=== PATIENT | female | born 1990 | race Caucasian/White ===

== ENCOUNTER 2016-09-16 06:30 | Inpatient (IN) | payer OTHER ==
[~2016-09-16 06:30] MED LIST: CITRIC ACID/SODIUM CITRATE 30 ML UNIT-DOSE CUP PO ONE; ELECTROLYTE-148 SOLN 1,000 ML IV SCH
[2016-09-16] MEDS ORDERED: ELECTROLYTE-148 SOLN 1,000 ML IV SCH (07:00)
[2016-09-16 07:32] VITALS: BMI 25.0
--- NOTE | 2016-09-16 08:03 | HP ---
Past Medical History - Primary Care Physician PCP:: Tony Guillen - Admission Chief Complaint: 39 weeks, 2 previous c/s , voluntary sterlization History of Present Illness: 26 yo f edc by sono 09/23/16 with 2 previous c/s requesting repeat c/s and btl, risks discussed , aware small failures risk and risk of ectopic, cx clp, vx -3 mi, fhr cat 1 History Source: Family Member Limitations to Obtaining History: Language Barrier - Past Medical History ...: 3 ...Para: 2 ...Term: 2 ...: 0 ...Spon : 0 ...Induced : 0 ...Multiple Gestation: 0 ...LMP: 12/18/15 ... Weeks Gestation by Dates: 39.0 ...EDC by Dates: 09/23/16 ...EDC by Sono: 09/23/16 - Past Surgical History Past Surgical History: Yes: Hx Myomectomy: No Hx Transabdominal Cerclage: No - Smoking History Smoking history: Never smoked Have you smoked in the past 12 months: No - Alcohol/Substance Use Hx Alcohol Use: No - Social History Usual Living Arrangement: Yes: With Spouse History of Recent Travel: No Home Medications - Allergies Allergies/Adverse Reactions: Allergies Allergy/AdvReac Type Severity Reaction Status Date / Time Penicillins Allergy Intermediate Rash Verified 09/16/16 07:22 - Home Medications Home Medications: Ambulatory Orders Vitamins (Sjr) - 1 tab PO DAILY 09/16/16 Review of Systems - Review of Systems Constitutional: reports: No Symptoms Eyes: reports: No Symptoms HENT: reports: No Symptoms Neck: reports: No Symptoms Cardiovascular: reports: No Symptoms Respiratory: reports: No Symptoms Gastrointestinal: reports: No Symptoms Genitourinary: reports: No Symptoms Breasts: reports: No Symptoms Reported Musculoskeletal: reports: No Symptoms Integumentary: reports: No Symptoms Neurological: reports: No Symptoms Endocrine: reports: No Symptoms Hematology/Lymphatic: reports: No Symptoms Psychiatric: reports: No Symptoms Physical Exam - Maternity Vital Signs: Vital Signs Temperature 98.3 F 09/16/16 07:07 Pulse Rate 72 09/16/16 07:07 Respiratory Rate 20 09/16/16 07:07 Blood Pressure 105/62 09/16/16 07:07 O2 Sat by Pulse Oximetry (%) Constitutional: Yes: Well Nourished, No Distress, Calm Eyes: Yes: WNL HENT: Yes: WNL, Atraumatic, Normocephalic Neck: Yes: WNL, Supple, Trachea Midline Cardiovascular: Yes: WNL, Regular Rate and Rhythm Breast(s): Yes: WNL - Abdominal Exam/OB Fundal Height: 40 Number of Fetuses: Single Presentation: Vertex Contractions: No Intensity: Unaware Monitor Mode: External Heart Rate Location: [facility] Category: I Accelerations: Uniform Decelerations: None - Vaginal Exam/OB Vaginal Bleediing: No Speculum Exam: No Dilatation (cm): closed Effacement (%): 0 Amniotic Membrane Status: Intact Presentation: Vertex/Position Station: -3 - Physical Exam Edema: Yes Edema: LLE: Trace, RLE: Trace Psychiatric: Yes: WNL Hemorrhage Risk Assessment - Risk Factors Risk Score: 1 Risk Level: Medium Risk Problem List - Problems (1) with 39 completed weeks gestation Code(s): Z3A.39 - 39 WEEKS GESTATION OF (2) Previous section complicating Code(s): O34.219 - MATERNAL CARE FOR UNSP TYPE SCAR FROM PREVIOUS DEL (3) Admission for sterilization Code(s): Z30.2 - ENCOUNTER FOR STERILIZATION Assessment/Plan repeat c/s rba discussed
[2016-09-16] MEDS ORDERED: oxyCODONE HCL 5 MG TABLET PO PRN ×2 (08:43)
[2016-09-16] MEDS ORDERED: METHYLERGONOVINE MALEATE 0.2 MG/1 ML AMP IM PRN (08:43)
[2016-09-16] MEDS ORDERED: WITCH HAZEL 50% (TUCKS) 40 PAD/JAR PAD TP PRN (08:43)
[2016-09-16] MEDS ORDERED: BENZOCAINE 28 GM HEMORRHOIDAL OINTMENT PR PRN (08:43)
[2016-09-16] MEDS ORDERED: diphenhydrAMINE HCL 25 MG CAPSULE (FP) PO PRN (08:43)
[2016-09-16] MEDS ORDERED: BENZOCAINE 20% 57 GM BOTTLE TP PRN (08:43)
[2016-09-16] MEDS ORDERED: IBUPROFEN 800 MG/8 ML IJ IVPB PRN (08:43)
[2016-09-16] MEDS ORDERED: DEXTROSE 5%-LACTATED RINGERS 1,000 ML IV SCH (08:45)
[2016-09-16] MEDS ORDERED: OXYTOCIN 20 UNITS in 0.9% NS 1,000 ML IV SCH (08:45)
[2016-09-16] MEDS ORDERED: CLINDAMYCIN 600MG PREMIX IVPB 50 ML IVPB SCH (10:00)
[2016-09-16] MEDS: PRENATAL VITAMINS W/ FOLIC ACID TABLET (FP) PO SCH (11:51)
--- NOTE | 2016-09-16 14:15 | OP ---
DATE OF OPERATION: 09/16/2016 PREOPERATIVE DIAGNOSES: 39 weeks, 2 previous sections, request of repeat section and tubal ligation. POSTOPERATIVE DIAGNOSES: 39 weeks, 2 previous sections, request of repeat section and tubal ligation. PROCEDURE: Repeat low segment transverse section and bilateral tubal ligation. SURGEON: Tony Guillen MD RELAY ASSEMBLER: SHILO Brito ANESTHESIA: Spinal. ANESTHESIOLOGIST: Dante Mcdowell MD ESTIMATED BLOOD LOSS: 500 mL. FINDINGS: A live baby girl ROT position. Apgars 9/9. DESCRIPTION OF PROCEDURE: The patient was taken to the operating room under adequate spinal anesthesia. Abdomen and perineum was prepped and draped. Old scar was removed, and then abdominal wall was cut layer by layer until peritoneum was exposed and incised. Upon entering the abdominal cavity, lower uterine segment was identified, and uterovesical fold of peritoneum established. Bladder was pushed down. Then with the lower blade of the [place] in the pelvis, a low transverse uterine incision was made. Incision was extended laterally. Amniotic sac was entered. Clear fluid. Head delivered. Nasal sinus was suctioned, and live baby girl was delivered without any difficulty. Placenta was delivered manually. Uterine cavity was cleaned of all remaining tissue. Uterine incision was closed in 2 layers, the first layer with 0 Biosyn continuous suture, the second layer with 0 Biosyn imbricating the first layer. Bladder flap was closed with 0 Biosyn continuous suture. Both tubes and ovaries were checked and normal. No active bleeding was seen. All of the laparotomy pad, sponge, and instrument counts were correct. Peritoneum was closed with 0 Biosyn continuous suture. Muscles were brought together with interrupted sutures of 0 Biosyn. Fascia was closed with 0 Biosyn continuous suture. Subcutaneous fat interrupted suture of 0 Biosyn and the skin was closed with marilyn. The patient tolerated the procedure well and left the OR in good condition. Erik [id number]
[2016-09-16] MEDS: CLINDAMYCIN 600MG PREMIX IVPB 50 ML IVPB SCH (17:18)
[2016-09-17] MEDS: CLINDAMYCIN 600MG PREMIX IVPB 50 ML IVPB SCH ×2 (02:04→09:43)
[2016-09-17] MEDS ORDERED: IBUPROFEN 800 MG/8 ML IJ IVPB ONE (02:26)
[2016-09-17 08:25] LABS: BASOPHIL 0.4 % (0-2.0); EOSINOPHIL 0.3 % (0-4.5); MCH 25.8 pg (25.7-33.7); MCHC 32.1 g/dl (32.0-36.0); MEAN CELL VOLUME 80.5 fl (80-96); MEAN PLT VOLUME 9.7 fl (7.5-11.1); NEUTROPHILS 77.6 % (42.8-82.8); PLATELET COUNT 111 K/MM3 (134-434); RDW 15.6 % (11.6-15.6); WHITE BLOOD COUNT 7.9 K/mm3 (4.0-10.0)
[2016-09-17] MEDS ORDERED: BISACODYL 10 MG SUPP.RECT RC PRN (08:43)
[2016-09-17] MEDS: PRENATAL VITAMINS W/ FOLIC ACID TABLET (FP) PO SCH (09:45)
--- NOTE | 2016-09-17 10:01 | PN ---
Progress Note (short form) - Note Progress Note: Post op day#1.S/P C section under spinal anesthesia with duramorph uneventful.Patient stable and does not c/o pain.No any anesthesia related problem.Patient Dc from the anesthesia care.
[2016-09-17] MEDS: IBUPROFEN 600 MG TABLET (FP) PO PRN ×2 (13:29→22:02)
[2016-09-17] MEDS: SIMETHICONE 80 MG TAB.CHEW (FP) PO PRN ×2 (13:30→22:01)
[2016-09-17] MEDS ORDERED: ACETAMINOPHEN 325 MG TABLET (FP) PO PRN (15:11)
--- NOTE | 2016-09-17 15:11 | PN ---
Post Progress Note - Subjective Subjective: 26 yo Para 3 status post repeat , seen and evaluated. Doing well. No complaints. Type of Delivery: Repeat C/S Vital Signs: Vital Signs Temperature 98.3 F 09/17/16 10:00 Pulse Rate 74 09/17/16 10:00 Respiratory Rate 20 09/17/16 11:00 Blood Pressure 112/72 09/17/16 10:00 O2 Sat by Pulse Oximetry (%) 100 09/16/16 09:45 Breast Exam: Yes: Soft Uterus: Yes: Fundus Firm Incision: Yes: Dressing dry and intact Abdomen/GI: Yes: Abdomen soft, Tolerating PO Lochia: Yes: Rubra Lochia, amount: Small Extremities: Yes: Calves non-tender Perineum: Yes: Intact Activity: Ambulating - Labs Labs: CBC WBC 7.9 K/mm3 (4.0-10.0) 09/17/16 07:45 RBC 3.86 M/mm3 (3.60-5.2) 09/17/16 07:45 Hgb 10.0 GM/dL (10.7-15.3) L 09/17/16 07:45 Hct 31.1 % (32.4-45.2) L 09/17/16 07:45 MCV 80.5 fl (80-96) 09/17/16 07:45 MCHC 32.1 g/dl (32.0-36.0) 09/17/16 07:45 RDW 15.6 % (11.6-15.6) 09/17/16 07:45 Plt Count 111 K/MM3 (134-434) L 09/17/16 07:45 MPV 9.7 fl (7.5-11.1) 09/17/16 07:45 Neutrophils % 77.6 % (42.8-82.8) D 09/17/16 07:45 Lymphocytes % 14.4 % (8-40) D 09/17/16 07:45 Monocytes % 7.3 % (3.8-10.2) 09/17/16 07:45 Eosinophils % 0.3 % (0-4.5) 09/17/16 07:45 Basophils % 0.4 % (0-2.0) 09/17/16 07:45 Problem List - Problems (1) Status post repeat low transverse section Code(s): Z98.891 - HISTORY OF UTERINE SCAR FROM PREVIOUS SURGERY Assessment/Plan Status post repeat Stable Ambulation Analgesia PRN pain Continue routine Post op care
--- NOTE | 2016-09-18 05:02 | DS ---
Physical Exam-CERTIFIED ALCOHOL DRUG COUNSELOR Vital Signs: Vital Signs Temperature 98.0 F 09/17/16 21:15 Pulse Rate 96 H 09/17/16 21:15 Respiratory Rate 20 09/17/16 21:15 Blood Pressure 100/76 09/17/16 21:15 O2 Sat by Pulse Oximetry (%) 100 09/16/16 09:45 Constitutional: Yes: Well Nourished, No Distress, Calm Eyes: Yes: WNL, Conjunctiva Clear, EOM Intact HENT: Yes: WNL, Atraumatic, Normocephalic Neck: Yes: WNL, Supple, Trachea Midline Cardiovascular: Yes: WNL, Regular Rate and Rhythm Respiratory: Yes: WNL, Regular, CTA Bilaterally Gastrointestinal: Yes: WNL ...Rectal Exam: Yes: WNL Renal/: Yes: WNL External Genitalia: Yes: Normal ....Post : Yes: Uterus firm, Uterus non-tender, Slight lochia rubra Breast(s): Yes: WNL Musculoskeletal: Yes: WNL Extremities: Yes: WNL Integumentary: Yes: WNL Wound/Incision: Yes: Clean/Dry, Well Approximated, Rand Intact Neurological: Yes: WNL, Alert, Oriented ...Motor Strength: WNL Psychiatric: Yes: WNL, Alert, Oriented Labs: CBC, BMP 09/17/16 07:45 Delivery - Delivery Section: Repeat (no complication) Type of Anesthesia: Spinal Episiotomy/Laceration: None EBL (cc): 500 Delivery, Single - Stages of Labor Date of Delivery: 09/16/16 Time of Delivery: 08:14 Time Placenta Delivered: 08:15 Placenta: Yes: Expressed - Condition of Infant Beater Boss/Animal Assisted Therapist Present: No Infant Gender: Female Weight: 8 lb 13 oz Position: Right, OT Total Hours ROM (Hrs/Mins): 0hrs 2min - 1 Minute Total Score: 6 5 Minutes Total Score: 9 - [place] Feeding Plan Initial Plan: Elected not to breastfeed exclusively throughout hospitalization Discharge Summary Reason For Visit: ADMIT C/SECTION Current Active Problems Admission for sterilization (Acute) with 39 completed weeks gestation (Acute) Previous section complicating (Acute) Status post repeat low transverse section (Acute) Procedures: Principal: repeat LST c/s Condition: Good - Instructions Disposition: HOME - Home Medications Comprehensive Discharge Medication List: Ambulatory Orders Vitamins (Sjr) - 1 tab PO DAILY 09/16/16
[2016-09-18] MEDS: PRENATAL VITAMINS W/ FOLIC ACID TABLET (FP) PO SCH (11:03)
[2016-09-18] MEDS ORDERED: SENNOSIDES/DOCUSATE COMBO (SENNA PLUS) TABLET (UD) PO PRN (22:00)
--- NOTE | 2016-09-19 07:20 | PN ---
Post Progress Note - Subjective Subjective: 26 yo Para 3, status post repeat , seen and evaluated. Doing well. No complaints. Post Day: 3 Type of Delivery: Repeat C/S Vital Signs: Vital Signs Temperature 98.1 F 09/18/16 22:00 Pulse Rate 63 09/18/16 22:00 Respiratory Rate 20 09/18/16 22:00 Blood Pressure 110/73 09/18/16 22:00 O2 Sat by Pulse Oximetry (%) 100 09/16/16 09:45 Breast Exam: Yes: Soft Uterus: Yes: Fundus Firm Incision: Yes: Rand intact Abdomen/GI: Yes: Abdomen soft, Tolerating PO Lochia: Yes: Rubra Lochia, amount: Small Extremities: Yes: Calves non-tender Perineum: Yes: Intact Activity: Ambulating - Labs Labs: CBC WBC 7.9 K/mm3 (4.0-10.0) 09/17/16 07:45 RBC 3.86 M/mm3 (3.60-5.2) 09/17/16 07:45 Hgb 10.0 GM/dL (10.7-15.3) L 09/17/16 07:45 Hct 31.1 % (32.4-45.2) L 09/17/16 07:45 MCV 80.5 fl (80-96) 09/17/16 07:45 MCHC 32.1 g/dl (32.0-36.0) 09/17/16 07:45 RDW 15.6 % (11.6-15.6) 09/17/16 07:45 Plt Count 111 K/MM3 (134-434) L 09/17/16 07:45 MPV 9.7 fl (7.5-11.1) 09/17/16 07:45 Neutrophils % 77.6 % (42.8-82.8) D 09/17/16 07:45 Lymphocytes % 14.4 % (8-40) D 09/17/16 07:45 Monocytes % 7.3 % (3.8-10.2) 09/17/16 07:45 Eosinophils % 0.3 % (0-4.5) 09/17/16 07:45 Basophils % 0.4 % (0-2.0) 09/17/16 07:45 Problem List - Problems (1) Status post repeat low transverse section Code(s): Z98.891 - HISTORY OF UTERINE SCAR FROM PREVIOUS SURGERY Assessment/Plan Status post repeat Stable Discharge home today
[2016-09-19 08:27] LABS: BASOPHIL 1.3 % (0-2.0); EOSINOPHIL 2.7 % (0-4.5); MCH 25.5 pg (25.7-33.7); MCHC 32.5 g/dl (32.0-36.0); MEAN CELL VOLUME 78.6 fl (80-96); MEAN PLT VOLUME 9.6 fl (7.5-11.1); NEUTROPHILS 64.6 % (42.8-82.8); PLATELET COUNT 121 K/MM3 (134-434); RDW 16.3 % (11.6-15.6); WHITE BLOOD COUNT 6.1 K/mm3 (4.0-10.0)
[2016-09-19] MEDS: PRENATAL VITAMINS W/ FOLIC ACID TABLET (FP) PO SCH (10:29)
[2016-09-19 12:17] VITALS: BP 98/62; PULSE 64; TEMP 98
--- NOTE | 2016-09-21 12:55 | PATH ---
Surgical Pathology Report Patient Name: CINDY LOPEZ [facility]. Rec. #: [id number] /Age/Gender: 1990 (Age: 26) / F Account: [id number] Location: [facility] OBS/RIPSAW GRADER Taken: 09/16/2016 Received: 09/17/2016 Reported: 09/21/2016 Physicians: Tony Guillen M.D. Specimen(s) Received A: PLACENTA B: PORTION FALLOPIAN TUBE LEFT C: PORTION FALLOPIAN TUBE RIGHT Clinical History , c/section 2008, 2012 Repeat s/section and BTL Final Diagnosis A. PLACENTA, DELIVERY: INTACT THIRD TRIMESTER PLACENTA WITH MILD MODERATE PREVILLOUS, PERIVILLOUS, AND PRECHORIONIC FIBRIN DEPOSITION, FOCAL CALCIFICATIONS, THREE VESSEL UMBILICAL CORD, AND PLACENTAL MEMBRANES FOCAL MILD ACUTE CHORIOAMNIONITIS. B. PORTION OF FALLOPIAN TUBE, LEFT LIGATION: SEGMENT OF FALLOPIAN TUBE WITH COMPLETE CROSS SECTION. C. PORTION OF FALLOPIAN TUBE, RIGHT AND LIGATION: SEGMENT OF FALLOPIAN TUBE WITH COMPLETE CROSS SECTION. Electronically Signed Ignacio Ferreira M.D. Gross Description A. The specimen is received fresh, labeled "placenta" and is a 565 gram, 16.0 x 14.0 x 3.7 cm placenta with attached membranes and umbilical cord. The attached membranes are oneill with focal opacities and insert marginally. The umbilical cord measures 33 cm in length and averages 1.3 cm in diameter. The cord inserts eccentrically, 3.5 cm to the nearest margin. No true knots or strictures are identified. Cut surface of the umbilical cord reveals 3 vessels. The surface is cobb-blue with minimal fibrin deposition and appropriate caliber vessels. The maternal surface is red-brown and intact. Sectioning reveals red-brown, spongy parenchyma. No lesions are identified. Biomedical Photographer sections are submitted in three cassettes as follows: 1- membrane rolls and umbilical cord; 2-3- full thickness sections of placenta. B. Received in formalin labeled "fallopian tube left" is a 0.7 cm in length portion of fallopian tube. No fimbria are present. The outer surface is oneill-knight and smooth. Sectioning reveals a pinpoint lumen. Biomedical Photographer sections are submitted in one cassette. C. Received in formalin labeled "fallopian tube right" is a 1.4 cm in length portion of fallopian tube. No fimbria are present. The outer surface is oneill-knight and smooth. Sectioning reveals a pinpoint lumen. Biomedical Photographer sections are submitted in one cassette. 09/18/2016 [facility]09/18/2016
== END 2016-09-19 11:25 | disposition home or self-care (01) | DRG 540 ==
LOC: JLDR 06:30 → J3W 11:44
PROVIDERS: ADMIT Obstetrics & Gynecology; ATTEND Obstetrics & Gynecology
PROC: 10D00Z1 Extraction of Products of Conception, Low, Open Approach (ICD-10-PCS; principal; 2016-09-16)
PROC: 0UL70ZZ Occlusion of Bilateral Fallopian Tubes, Open Approach (ICD-10-PCS; 2016-09-16)
DX: O34.211 Maternal care for low transverse scar from previous cesarean delivery (principal); Z30.2 Encounter for sterilization; Z3A.39 39 weeks gestation of pregnancy; Z37.0 Single live birth
CPT/HCPCS: 36415; 85025; 88302-TC; 88307-TC

== ENCOUNTER 2016-09-30 19:10 | Emergency (ER) | payer OTHER ==
[2016-09-30 19:23] VITALS: BMI 21.2
[2016-09-30] MEDS ORDERED: ONDANSETRON 4 MG/2 ML VIAL IVPB ONE (20:20)
[2016-09-30] MEDS ORDERED: SODIUM CHLORIDE 1,000 ML IV STA (20:20)
--- NOTE | 2016-09-30 20:26 | PDOC ---
History of Present Illness - General Chief Complaint: Pain Stated Complaint: STOMACH PAIN Time Seen by Provider: 09/30/16 20:10 History Source: Patient - History of Present Illness Initial Comments: 09/30/16 20:21 26 year old female s/p 2 weeks ago c/o Dizziness, vomiting and diarrhea for 10 days patient now also reports small "ball" to the rectal area that is very painful. Patient denies rectal bleeding, fever, chest pain, respiratory symptoms, urinary symptoms at this time. She reports no past medical history. Past History - Past Medical History Allergies/Adverse Reactions: Allergies Allergy/AdvReac Type Severity Reaction Status Date / Time Penicillins Allergy Intermediate Rash Verified 09/30/16 21:34 Home Medications: Ambulatory Orders Hydrocortisone 2.5% Topical Cr [Anusol 2.5% Hc Cream -] 1 applic RC BID #1 tube 09/30/16 Asthma: No Cancer: No Cardiac Disorders: No Diabetes: No HTN: No Seizures: No Thyroid Disease: No - Psycho/Social/Smoking Cessation Hx Suicidal Ideation: No Smoking History: Never smoked Have you smoked in the past 12 months: No Hx Alcohol Use: No Drug/Substance Use Hx: No Hx Substance Use Treatment: No Review of Systems - Review of Systems Able to Perform ROS?: Yes Is the patient limited Green[place]ic proficient: No ABD/GI: Yes: Diarrhea, Nausea, Vomiting : Yes: Other (rectal pain) *Physical Exam - Vital Signs Last Vital Signs Temp Pulse Resp BP Pulse Ox 98.1 F 69 18 112/75 99 09/30/16 19:19 09/30/16 19:19 09/30/16 19:19 09/30/16 19:19 09/30/16 19:19 - Physical Exam General Appearance: Yes: Appropriately Dressed Respiratory/Chest: positive: Lungs Clear, Normal Breath Sounds Cardiovascular: positive: Regular Rhythm, Regular Rate Gastrointestinal/Abdominal: positive: Normal Bowel Sounds, Soft, Tenderness (LLQ ), Other (well healed incision to pelvic area) Rectal Exam: positive: hemorrhoids, other (+ 4 o' clock location external hemorrhoid) Extremity: positive: Normal Capillary Refill, Normal Inspection, Normal Range of Motion Integumentary: positive: Normal Color, Dry, Warm Neurologic: positive: Fully Oriented, Alert, Normal Mood/Affect ED Treatment Course - LABORATORY CBC & Chemistry Diagram: 09/30/16 21:23 09/30/16 21:23 Medical Decision Making - Medical Decision Making 09/30/16 21:07 A: colitis P: cbc cmp levaquin/ flagyl? ua: +1 ketones 09/30/16 22:33 Discharge instructions given via [facility] commercial collections specialist. patient is currently . reports feeling better and no abdominal pain after fluids and zofran. levaquin/ flagyl contraindicated in . patient is going to follow up with pmd tomorrow, if with persistent diarrhea tomorrow will consider antibiotics at that time. *DC/Admit/Observation/Transfer Diagnosis at time of Disposition: Gastroenteritis Hemorrhoids Qualifiers: Hemorrhoid type: unspecified Qualified Code(s): K64.9 - Unspecified hemorrhoids - Discharge Dispostion Disposition: HOME - Prescriptions Prescriptions: Hydrocortisone 2.5% Topical Cr [Anusol 2.5% Hc Cream -] 1 applic RC BID #1 tube - Referrals Referrals: Lincoln Addison [Primary Care Provider] - - Patient Instructions Printed Discharge Instructions: Gastroenteritis Diet Additional Instructions: drink plenty of fluids follow up with your doctor tomorrow. follow a BRAT (bananas, rice, apples and toast ) diet return to the ER if symptoms worsen/ for hemorrhoids apply cream to the area as prescribed.
[2016-09-30] MEDS ORDERED: ONDANSETRON 4 MG/2 ML VIAL ONE (20:59)
--- NOTE | 2016-09-30 21:05 | PDOC ---
*Physical Exam - Vital Signs Last Vital Signs Temp Pulse Resp BP Pulse Ox 98.1 F 69 18 112/75 99 09/30/16 19:19 09/30/16 19:19 09/30/16 19:19 09/30/16 19:19 09/30/16 20:28 ED Treatment Course - LABORATORY CBC & Chemistry Diagram: 09/30/16 21:23 09/30/16 21:23 Medical Decision Making - Medical Decision Making 09/30/16 21:05 agree with care from MELANIA Pisano *DC/Admit/Observation/Transfer Diagnosis at time of Disposition: Gastroenteritis, Hemorrhoids - Discharge Dispostion Disposition: HOME - Referrals Referrals: Lincoln Addison [Primary Care Provider] - - Patient Instructions Printed Discharge Instructions: Gastroenteritis Diet Additional Instructions: drink plenty of fluids follow up with your doctor tomorrow. follow a BRAT (bananas, rice, apples and toast ) diet return to the ER if symptoms worsen/ for hemorrhoids apply cream to the area as prescribed. - Post Discharge Activity
[2016-09-30 21:30] LABS: BASOPHIL 0.7 % (0-2.0); EOSINOPHIL 5.6 % (0-4.5); MCH 25.4 pg (25.7-33.7); MCHC 31.6 g/dl (32.0-36.0); MEAN CELL VOLUME 80.3 fl (80-96); MEAN PLT VOLUME 8.7 fl (7.5-11.1); NEUTROPHILS 55.2 % (42.8-82.8); PLATELET COUNT 199 K/MM3 (134-434); RDW 18.3 % (11.6-15.6); WHITE BLOOD COUNT 5.3 K/mm3 (4.0-10.0)
[2016-09-30 21:33] LABS: URINE APPEARANCE CLEAR; URINE BILIRUBIN NEGATIVE (NEGATIVE); URINE BLOOD NEGATIVE (NEGATIVE); URINE COLOR STRAW; URINE GLUCOSE (UA) NEGATIVE (NEGATIVE); URINE KETONE 1+ (NEGATIVE); URINE LEUK ESTERASE NEGATIVE (NEGATIVE); URINE NITRITE NEGATIVE (NEGATIVE); URINE PROTEIN NEGATIVE (NEGATIVE); URINE UROBILINOGEN NEGATIVE E.U./dl (0.2-1.0)
[2016-09-30 21:54] LABS: ALBUMIN 3.5 g/dl (3.4-5.0); ANION GAP 11 (8-16); CO2 25 mmol/L (21-32); CREATININE 0.7 mg/dL (0.55-1.02); GLUCOSE,RANDOM 82 mg/dL (74-106); SGOT/AST 18 U/L (15-37); SGPT/ALT 17 U/L (12-78)
[2016-09-30 21:56] LABS: ALK PHOS 116 U/L (45-117); BILIRUBIN,TOTAL 0.4 mg/dL (0.2-1.0)
[2016-09-30 22:46] VITALS: BP 115/78; PULSE 72; TEMP 98
== END 2016-09-30 22:46 | disposition home or self-care (01) ==
LOC: JER 19:10
PROC: 3E033GC Introduction of Other Therapeutic Substance into Peripheral Vein, Percutaneous Approach (ICD-10-PCS; principal; 2016-09-30)
PROC: 3E0337Z Introduction of Electrolytic and Water Balance Substance into Peripheral Vein, Percutaneous Approach (ICD-10-PCS; 2016-09-30)
DX: K52.9 Noninfective gastroenteritis and colitis, unspecified (principal); K64.9 Unspecified hemorrhoids
CPT/HCPCS: 36415; 80053; 81003; 83690; 85025; 96361; 96374; 99282-25

== ENCOUNTER 2016-10-01 11:23 | Emergency (ER) | payer OTHER ==
[2016-10-01 11:48] VITALS: TEMP 98.1
[2016-10-01] MEDS ORDERED: KETOROLAC TROMETHAMINE 30 MG/1 ML VIAL IVPUSH ONE (11:54)
[2016-10-01] MEDS ORDERED: SODIUM CHLORIDE 1,000 ML IV STA (11:54)
--- NOTE | 2016-10-01 12:01 | PDOC ---
History of Present Illness - General Chief Complaint: Pain, Acute Stated Complaint: ABD PAIN Time Seen by Provider: 10/01/16 11:46 History Source: Patient - History of Present Illness Timing/Duration: reports: constant Quality: reports: severe Abdominal Pain Onset Location: reports: RLQ Pain Radiation: reports: no radiation Past History - Past Medical History Allergies/Adverse Reactions: Allergies Allergy/AdvReac Type Severity Reaction Status Date / Time Penicillins Allergy Intermediate Rash Verified 10/01/16 11:38 Home Medications: Ambulatory Orders Ciprofloxacin [Cipro -] 500 mg PO Q12H #14 tablet 10/01/16 Metronidazole 500 mg PO Q8H #21 tablet 10/01/16 Tramadol HCl 50 mg PO Q6H #8 tablet MDD 200 mg 10/01/16 Asthma: No Cancer: No Cardiac Disorders: No Diabetes: No HTN: No Seizures: No Thyroid Disease: No - Psycho/Social/Smoking Cessation Hx Suicidal Ideation: No Smoking History: Never smoked Have you smoked in the past 12 months: No Hx Alcohol Use: No Drug/Substance Use Hx: No Hx Substance Use Treatment: No Review of Systems - Review of Systems Constitutional: Yes: Weakness. No: Chills, Fever ABD/GI: Yes: Diarrhea, Nausea, Vomiting, Abdominal cramping : No: Dysuria *Physical Exam - Vital Signs Last Vital Signs Temp Pulse Resp BP Pulse Ox 98.1 F 51 L 18 121/68 100 10/01/16 11:39 10/01/16 11:39 10/01/16 11:39 10/01/16 11:39 10/01/16 11:39 - Physical Exam General Appearance: Yes: Appropriately Dressed. No: Apparent Distress HEENT: positive: Normal Voice Neck: positive: Supple Respiratory/Chest: negative: Respiratory Distress Gastrointestinal/Abdominal: positive: Normal Bowel Sounds (to RLQ), Tender, Soft. negative: Distended, Guarding, Rebound Musculoskeletal: negative: CVA Tenderness Extremity: positive: Normal Inspection Integumentary: positive: Dry, Warm Neurologic: positive: Fully Oriented, Alert, Normal Mood/Affect ED Treatment Course - LABORATORY CBC & Chemistry Diagram: 10/01/16 12:10 10/01/16 12:10 - RADIOLOGY Radiology Studies Ordered: Category Date Time Status ABDOMEN & PELVIS CT WITH CONTR [CT] Stat CT Scan 10/01/16 11:53 Ordered Medical Decision Making - Medical Decision Making 10/01/16 11:55 26 yo F, s/p csection 2 weeks ago, here w/ persistent n/v/d and abd pain x 10 days. Patient was seen in the ED yesterday for same, had negative labs, given medications and discharged home. States she was feeling better upon discharge but that abdominal pain returned this a.m. Denies hematemesis, hematochezia, fever or chills. No lower abd pain, vag bleed or dysuria. No recent antibiotic use, use travel, sick contacts or unusual foods. See exam N/V/D w/ abd pain x 10 days S/p ER visit yesterday w/ neg labs Stable w/ ttp to RLQ today Will r/o appy -pain control -zofran -IVF -labs -CT - 10/01/16 12:03 10/01/16 12:04 10/01/16 12:13 Of note, pt s/p csection 2 weeks ago so serum beta will m/l be +. Pt reports not being sexually active since delivery. Called and informed radiology. 10/01/16 14:[address], possibly ulcerative, no appy. Labs wnl. Pt well chris, feeling better and able to chula po. Will dc w/ cipro and flagyl. Patient instructed that she should not breast-feed until she is off medications which patient agrees to. Also explained to patient that after symptoms resolve, she will need to follow up with GI for further workup. Strict return precautions given to pt and *DC/Admit/Observation/Transfer Diagnosis at time of Disposition: Colitis - Discharge Dispostion Disposition: HOME Condition at time of disposition: Improved - Prescriptions Prescriptions: Ciprofloxacin [Cipro -] 500 mg PO Q12H #14 tablet Metronidazole 500 mg PO Q8H #21 tablet Tramadol HCl 50 mg PO Q6H #8 tablet MDD 200 mg - Referrals Referrals: Idris Lang MD [Staff Physician] - - Patient Instructions Printed Discharge Instructions: DI for Colitis Additional Instructions: Usted tiene patti infeccin en shaffer colon. Por favor, tome los antibiticos segn las indicaciones y medicamentos para el dolor. No amamante mientras est tomando medicamentos. Volver a la [place] por empeoramiento de los sntomas Necesita hacer un seguimiento con el Dr. Lang de gastroenterologa Print Language: [place]IZ[place]
[2016-10-01] MEDS ORDERED: ONDANSETRON 4 MG/2 ML VIAL ONE (12:11)
[2016-10-01 12:20] LABS: BASOPHIL 0.6 % (0-2.0); EOSINOPHIL 3.5 % (0-4.5); MCH 25.7 pg (25.7-33.7); MCHC 32.1 g/dl (32.0-36.0); MEAN PLT VOLUME 8.8 fl (7.5-11.1); NEUTROPHILS 67.6 % (42.8-82.8); PLATELET COUNT 196 K/MM3 (134-434); RDW 18.2 % (11.6-15.6); WHITE BLOOD COUNT 6.6 K/mm3 (4.0-10.0)
[2016-10-01 12:48] LABS: ALBUMIN 3.3 g/dl (3.4-5.0); ALK PHOS 113 U/L (45-117); ANION GAP 13 (8-16); BILIRUBIN,TOTAL 0.4 mg/dL (0.2-1.0); CALCIUM 8.5 mg/dL (8.5-10.1); CO2 24 mmol/L (21-32); CREATININE 0.7 mg/dL (0.55-1.02); GLUCOSE,RANDOM 91 mg/dL (74-106); SGOT/AST 17 U/L (15-37); SGPT/ALT 15 U/L (12-78); TOT PROT 6.6 g/dl (6.4-8.2)
[2016-10-01 12:48] LABS: URINE APPEARANCE CLEAR; URINE BILIRUBIN NEGATIVE (NEGATIVE); URINE BLOOD NEGATIVE (NEGATIVE); URINE COLOR STRAW; URINE GLUCOSE (UA) NEGATIVE (NEGATIVE); URINE KETONE NEGATIVE (NEGATIVE); URINE NITRITE NEGATIVE (NEGATIVE); URINE PROTEIN NEGATIVE (NEGATIVE); URINE UROBILINOGEN NEGATIVE E.U./dl (0.2-1.0)
[2016-10-01 12:51] LABS: URINE LEUK ESTERASE TRACE (NEGATIVE)
[2016-10-01 13:01] LABS: URINE MUCUS RARE; URINE RBC <1 /hpf (0-3); URINE WBC 1 /hpf (3-5)
[2016-10-01] MEDS ORDERED: metroNIDAZOLE 500 MG TABLET PO ONE (14:40)
[2016-10-01] MEDS ORDERED: CIPROFLOXACIN 500 MG TABLET (RESTRICTED TO ID) PO ONE (14:40)
[2016-10-01] MEDS ORDERED: metroNIDAZOLE 250 MG TABLET ONE (14:45)
[2016-10-01] MEDS ORDERED: IBUPROFEN 400 MG TABLET (FP) PO ONE ×2 (14:56→15:21)
[2016-10-01 15:28] VITALS: BP 118/52; PULSE 54
== END 2016-10-01 15:28 | disposition home or self-care (01) ==
LOC: JER 11:23
PROC: 3E0333Z Introduction of Anti-inflammatory into Peripheral Vein, Percutaneous Approach (ICD-10-PCS; principal; 2016-10-01)
PROC: 3E0337Z Introduction of Electrolytic and Water Balance Substance into Peripheral Vein, Percutaneous Approach (ICD-10-PCS; 2016-10-01)
DX: K52.9 Noninfective gastroenteritis and colitis, unspecified (principal)
CPT/HCPCS: 36415; 74177-TC; 80053; 81003; 81015; 85025; 87045; 87046; 87324; 87449; 99283-25

== ENCOUNTER 2018-05-06 12:04 | Emergency (ER) | payer OTHER ==
[2018-05-06 12:18] VITALS: BP 102/68; PULSE 107; TEMP 98.2; BMI 23.2
[2018-05-06] MEDS ORDERED: IBUPROFEN 400 MG TABLET (FP) PO ONE ×2 (12:27→12:31)
--- NOTE | 2018-05-06 13:18 | PDOC ---
History of Present Illness - General Chief Complaint: Abscess Boil Stated Complaint: SENT BY PCP BOIL Time Seen by Provider: 05/06/18 12:11 History Source: Patient Exam Limitations: No Limitations Past History - Past Medical History Allergies/Adverse Reactions: Allergies Allergy/AdvReac Type Severity Reaction Status Date / Time Penicillins Allergy Intermediate Rash Verified 05/06/18 12:09 Home Medications: Ambulatory Orders NK [No Known Home Medication] 05/06/18 Asthma: No Cancer: No Cardiac Disorders: No COPD: No Diabetes: No HTN: No Seizures: No Thyroid Disease: No - Suicide/Smoking/Psychosocial Hx Smoking History: Never smoked Have you smoked in the past 12 months: No Information on smoking cessation initiated: No Hx Alcohol Use: No Drug/Substance Use Hx: No Hx Substance Use Treatment: No *Physical Exam - Vital Signs Last Vital Signs Temp Pulse Resp BP Pulse Ox 98.2 F 107 H 18 102/68 97 05/06/18 12:06 05/06/18 12:06 05/06/18 12:06 05/06/18 12:06 05/06/18 12:06 - Physical Exam General Appearance: No: Apparent Distress Integumentary: positive: Other (Abscess around 3 cm long along left inner lower buttock, no surrounding erythema, perineal site not involved) Neurologic: positive: Alert, Normal Mood/Affect Moderate Sedation - Procedure Monitoring Vital Signs: Procedure Monitoring Vital Signs Temperature 98.2 F 05/06/18 12:06 Pulse Rate 107 H 05/06/18 12:06 Respiratory Rate 18 05/06/18 12:06 Blood Pressure 102/68 05/06/18 12:06 O2 Sat by Pulse Oximetry (%) 97 05/06/18 12:06 Procedures - Incision and Drainage I&D Site: Left: Buttock Betadine cleansed: Yes Anesthesia: 1% Lidocaine Blade Size: 15 Attempts: 1 Iodinated Packin/ in Complications: none Dressing: Yes (Sterile gauze) ED Treatment Course - Medications Given in the ED: ED Medications Discontinued Medications Generic Name Dose Route Start Last Admin Trade Name Freq PRN Reason Stop Dose Admin Ibuprofen 800 mg 05/06/18 12:27 05/06/18 12:32 Motrin - PO 05/06/18 12:28 800 mg ONCE ONE Administration Medical Decision Making - Medical Decision Making 28 y/o F with no sig pmh presents with abscess to L lower buttock x 3 days. Denies fever. Denies shaving around site. Has never had an abscess before. I&D done with purulent drainage Site packed; patient advised to come back in 2 days for wound check 05/06/18 13:14 *DC/Admit/Observation/Transfer Diagnosis at time of Disposition: Abscess - Discharge Dispostion Disposition: HOME Condition at time of disposition: Stable Decision to Admit order: No - Referrals Referrals: Rebeca Williamson MD [Primary Care Provider] - - Patient Instructions Printed Discharge Instructions: DI for Incision and Drainage of a Skin Abscess Additional Instructions: Thank you for choosing [facility]. It was a pleasure taking care of you. You may take Motrin 600 mg every 4 hours by mouth as needed for mild to moderate pain. Take Motrin with food. Keep site dry Please come to ED in 2 days for wound check. Return to the Emergency Department if your symptoms worsen or persist, you have fever, streaking from wound site, worsening appearance of wound or other concerning symptoms. Hieu por elegir el [facility]. Fue un placer cuidar de ti. Puede carmenza Motrin 600 mg cada 4 horas por va oral segn sea necesario para el dolor leve a moderado. [facility] Motrin con la comida. Mantener el sitio seco Por favor, venga a ED en 2 dawson para la revisin de la herida. Regrese al Departamento de Emergencias si gideon sntomas empeoran o persisten, tiene fiebre, ester en el sitio de la herida, empeoramiento de la apariencia de la herida u otros sntomas relacionados. Print Language: GABONESE - Post Discharge Activity
== END 2018-05-06 13:29 | disposition home or self-care (01) ==
LOC: JERFT 12:04
PROC: 0H98XZZ Drainage of Buttock Skin, External Approach (ICD-10-PCS; principal; 2018-05-06)
DX: L02.31 Cutaneous abscess of buttock (principal)
CPT/HCPCS: 99281-25

== ENCOUNTER 2018-07-25 14:11 | Emergency (ER) | payer OTHER ==
--- NOTE | 2018-07-25 14:14 | PDOC ---
Rapid Medical Evaluation Medical Evaluation: Allergies Allergy/AdvReac Type Severity Reaction Status Date / Time Penicillins Allergy Intermediate Rash Verified 05/06/18 12:09 07/25/18 14:13 I have performed a brief in-person evaluation of this patient. The patient presents with a chief complaint of: WIGGINS w/ oral numbness and intermittent numbness to L arm x 4 days. Has mild WIGGINS now. No sig pmhx Pertinent physical exam findings:stable and well chris, rest deferred to ED provider I have ordered the following:upreg The patient will proceed to the ED for further evaluation. 07/25/18 14:26 Discharge Disposition - Diagnosis Headache Qualifiers: Headache type: unspecified Headache chronicity pattern: acute headache Intractability: not intractable Qualified Code(s): R51 - Headache - Referrals - Patient Instructions - Post Discharge Activity
[2018-07-25 14:28] VITALS: PULSE 69; TEMP 98; BMI 18.9
[2018-07-25] MEDS ORDERED: SODIUM CHLORIDE 1,000 ML IV STA (15:58)
[2018-07-25] MEDS ORDERED: METOCLOPRAMIDE HCL INJECTION 10 MG/2 ML VIAL IVPB ONE (15:58)
[2018-07-25] MEDS ORDERED: ACETAMINOPHEN 1000 MG/100 ML VIAL (NON FORMULARY) IVPB ONE (15:59)
--- NOTE | 2018-07-25 16:00 | PDOC ---
History of Present Illness - General Chief Complaint: Headache Stated Complaint: PAIN Time Seen by Provider: 07/25/18 14:24 History Source: Patient Exam Limitations: No Limitations Past History - Travel Traveled outside of the country in the last 30 days: No Close contact w/someone who was outside of country & ill: No - Past Medical History Allergies/Adverse Reactions: Allergies Allergy/AdvReac Type Severity Reaction Status Date / Time Penicillins Allergy Intermediate Rash Verified 05/06/18 12:09 Home Medications: Ambulatory Orders NK [No Known Home Medication] 05/06/18 Asthma: No Cancer: No Cardiac Disorders: No COPD: No Diabetes: No HTN: No Seizures: No Thyroid Disease: No - Suicide/Smoking/Psychosocial Hx Smoking History: Unknown if ever smoked Have you smoked in the past 12 months: No Information on smoking cessation initiated: No Hx Alcohol Use: No Drug/Substance Use Hx: No Hx Substance Use Treatment: No Review of Systems - Review of Systems Able to Perform ROS?: Yes Comments:: 07/25/18 18:55 CONSTITUTIONAL: Absent: fever, chills, diaphoresis, generalized weakness, malaise, loss of appetite HEENT: Absent: rhinorrhea, nasal congestion, throat pain, throat swelling, difficulty swallowing, mouth swelling, ear pain, eye pain, visual Changes CARDIOVASCULAR: Absent: chest pain, loss of consciousness, palpitations, irregular heart rate, peripheral edema RESPIRATORY: Absent: cough, shortness of breath, dyspnea with exertion, orthopnea, wheezing, stridor, hemoptysis GASTROINTESTINAL: Absent: abdominal pain, abdominal distension, nausea, vomiting, diarrhea, constipation, melena, hematochezia GENITOURINARY: Absent: dysuria, frequency, urgency, hesitancy, hematuria, flank pain, genital pain MUSCULOSKELETAL: Absent: myalgia, arthralgia, joint swelling SKIN: Absent: rash, itching, pallor HEMATOLOGIC/IMMUNOLOGIC: Absent: easy bleeding, easy bruising, lymphadenopathy, frequent infections ENDOCRINE: Absent: unexplained weight gain, unexplained weight loss, heat intolerance, cold intolerance NEUROLOGIC: Present: headache Absent: focal weakness or paresthesias, dizziness, unsteady gait, seizure, mental status changes, bladder or bowel incontinence PSYCHIATRIC: Absent: anxiety, depression, suicidal or homicidal ideation, hallucinations. Is the patient limited Greenlandic proficient: No *Physical Exam - Vital Signs Last Vital Signs Temp Pulse Resp BP Pulse Ox 98 F 69 20 101/58 L 100 07/25/18 14:21 07/25/18 14:21 07/25/18 14:21 07/25/18 14:21 07/25/18 14:21 - Physical Exam Comments: 07/25/18 18:56 GENERAL: Well developed, well nourished. Awake and alert. No acute distress. HEENT: Normocephalic, atraumatic. PERRLA, EOMI. No conjunctival pallor. Sclera are non- icteric. Moist mucous membranes. Oropharynx is clear. NECK: Supple. Full ROM. No JVD. Carotid pulses 2+ and symmetric, without bruits. No thyromegaly. No lymphadenopathy. MUSCULOSKELETAL Normal range of motion at all joints. No bony deformities or tenderness. No CVA tenderness. EXTREMITIES: No cyanosis. No clubbing. No edema. No calf tenderness. SKIN: Warm and dry. Normal capillary refill. No rashes. No jaundice. NEUROLOGICAL: Alert, awake, appropriate. Cranial nerves 2-12 intact. No deficits to light touch and temperature in face, upper extremities and lower extremities. No motor deficits in the in face, upper extremities and lower extremities. Normoreflexic in the upper and lower extremities. Normal speech. Toes are down- going bilaterally. Gait is normal without ataxia. PSYCHIATRIC: Cooperative. Good eye contact. Appropriate mood and affect. Medical Decision Making - Medical Decision Making 07/25/18 18:56 The patient is a 28-year-old female who presents to the emergency department today for headache for 4 days. Patient states she has tried taking Tylenol at home with little relief of her symptoms. She states that the headache is mostly on the left side. She also notes associated left arm numbness and left tongue numbness. Denies weakness, LOC, lightheadedness and dizziness. Patient states her last menstrual cycle was 07/12/18. A/P: Headache On exam patient is neurologically intact with no focal findings. Given complex findings of left arm numbness and left tongue numbness, head CT was ordered. Reglan, Benadryl and [place] given with relief of symptoms. I suspect the patient had a complex migraine. Urine is positive at this time. Patient states that she had a tubal ligation approximately [address] scan deferred. Beta hCG added and patient sent to ultrasound to evaluate the . Sign out given to [employer] Norris. Patient is currently pending beta hCG and ultrasound results. *DC/Admit/Observation/Transfer Diagnosis at time of Disposition: Left ovarian cyst Headache Qualifiers: Headache type: unspecified Headache chronicity pattern: acute headache Intractability: not intractable Qualified Code(s): R51 - Headache - Discharge Dispostion Disposition: HOME - Referrals Referrals: Belkis Goodman MD [Nurse Practitioner] - Call tomorrow - Patient Instructions Printed Discharge Instructions: Ovarian Cyst Additional Instructions: drink plenty of fluids take tylenol or ibuprofen every 6 hours as needed for headache follow up with your doctor as soon as possible. return to the ER for any worsening symptoms/ - Post Discharge Activity Forms/Work/School Notes: Back to Work
[2018-07-25] MEDS ORDERED: METOCLOPRAMIDE HCL INJECTION 10 MG/2 ML VIAL ONE (16:28)
[2018-07-25] MEDS ORDERED: ACETAMINOPHEN INJECTION 100 ML IVPB ONE (16:29)
--- NOTE | 2018-07-25 20:08 | PDOC ---
*Physical Exam - Vital Signs Last Vital Signs Temp Pulse Resp BP Pulse Ox 98 F 69 20 101/58 L 100 07/25/18 14:21 07/25/18 14:21 07/25/18 14:21 07/25/18 14:21 07/25/18 14:21 - Physical Exam General Appearance: Yes: Appropriately Dressed ED Treatment Course - ADDITIONAL ORDERS Additional order review: Laboratory Results 07/25/18 07/25/18 19:19 16:15 Beta HCG, Quant < 1.0 Urine HCG, Qual Positive - Medications Given in the ED: ED Medications Discontinued Medications Generic Name Dose Route Start Last Admin Trade Name Yoni PRN Reason Stop Dose Admin Acetaminophen 1,000 mg 07/25/18 15:59 07/25/18 17:22 Ofirmev Injection - IVPB 07/25/18 16:00 1,000 mg ONCE ONE Administration Diphenhydramine HCl 12.5 mg 07/25/18 15:58 07/25/18 17:16 Benadryl Injection - IVPUSH 07/25/18 15:59 12.5 mg ONCE ONE Administration Sodium Chloride 1,000 mls @ 1,000 mls/hr 07/25/18 15:58 07/25/18 16:45 Normal Saline - IV 07/25/18 16:57 1,000 mls/hr ASDIR STA Administration Metoclopramide HCl 10 mg 07/25/18 15:58 07/25/18 16:45 Reglan Injection - IVPB 07/25/18 15:59 10 mg ONCE ONE Administration Medical Decision Making - Medical Decision Making 07/25/18 20:05 feeling better. beta hcg negative. TVUS nno IUP. + left ovarian cyst patient to follow up with pcp. headache has improved. will d/c home *DC/Admit/Observation/Transfer Diagnosis at time of Disposition: Left ovarian cyst Headache Qualifiers: Headache type: unspecified Headache chronicity pattern: acute headache Intractability: not intractable Qualified Code(s): R51 - Headache - Discharge Dispostion Disposition: HOME - Referrals Referrals: Belkis Goodman MD [Nurse Practitioner] - Call tomorrow - Patient Instructions Printed Discharge Instructions: Ovarian Cyst Additional Instructions: drink plenty of fluids take tylenol or ibuprofen every 6 hours as needed for headache follow up with your doctor as soon as possible. return to the ER for any worsening symptoms/ - Post Discharge Activity Forms/Work/School Notes: Back to Work
[2018-07-25 20:23] VITALS: BP 98/56
== END 2018-07-25 20:23 | disposition home or self-care (01) ==
LOC: JER 14:11
PROC: 3E033NZ Introduction of Analgesics, Hypnotics, Sedatives into Peripheral Vein, Percutaneous Approach (ICD-10-PCS; principal; 2018-07-25)
PROC: 3E033GC Introduction of Other Therapeutic Substance into Peripheral Vein, Percutaneous Approach (ICD-10-PCS; 2018-07-25)
PROC: 3E033GC Introduction of Other Therapeutic Substance into Peripheral Vein, Percutaneous Approach (ICD-10-PCS; 2018-07-25)
DX: R51 Headache (principal); N83.202 Unspecified ovarian cyst, left side
CPT/HCPCS: 36415; 76817-TC; 84702; 84703; 96374; 96375; 99282-25; J0131; J7030

== ENCOUNTER 2019-05-14 16:09 | Emergency (ER) | payer OTHER ==
[2019-05-14] MEDS ORDERED: LACTATED RINGERS SOLUTION 1000 ML INFUS.BAG IV ONE (16:33)
[2019-05-14] MEDS ORDERED: ACETAMINOPHEN 1000 MG/100 ML VIAL (NON FORMULARY) IVPB ONE (16:33)
[2019-05-14] MEDS ORDERED: METOCLOPRAMIDE HCL INJECTION 10 MG/2 ML VIAL IVPB ONE (16:33)
[2019-05-14] MEDS ORDERED: METOCLOPRAMIDE HCL INJECTION 10 MG/2 ML VIAL ONE (16:43)
--- NOTE | 2019-05-14 16:43 | PDOC ---
History of Present Illness - General Chief Complaint: Headache Stated Complaint: BAD HEADACHE Time Seen by Provider: 05/14/19 16:22 History Source: Patient Exam Limitations: Clinical Condition - History of Present Illness Initial Comments: 05/14/19 16:52 Patient with no significant past medical history present with complaint of 2- day history of headache, body aches, fever, nasal congestion and malaise. Patient reported headache is frontal headache. Denies vomiting, dizziness, palpitation, shortness of breath, blurry vision or change in vision. Patient has not taken anything for symptoms. Denies sick contacts or recent travel Is this a multiple visit Asthma Patient?: No Timing/Duration: other (2 days) Past History - Past Medical History Allergies/Adverse Reactions: Allergies Allergy/AdvReac Type Severity Reaction Status Date / Time Penicillins Allergy Intermediate Rash Verified 05/14/19 16:17 Home Medications: Ambulatory Orders Ipratropium [place] 2 spray NS BID PRN 5 Days #1 spray 05/14/19 Methylprednisolone [Medrol Dose Arvin] 4 mg PO ASDIR #21 tablet 05/14/19 Ondansetron [Zofran *Odt*] 4 mg SL Q8H PRN #12 od.tablet 05/14/19 Oseltamivir Phosphate [Tamiflu -] 75 mg PO BID #10 capsule 05/14/19 Asthma: No Cancer: No Cardiac Disorders: No COPD: No Diabetes: No HTN: No Seizures: No Thyroid Disease: No - Psycho Social/Smoking Cessation Hx Smoking History: Never smoked Have you smoked in the past 12 months: No Hx Alcohol Use: No Drug/Substance Use Hx: No Hx Substance Use Treatment: No Review of Systems - Review of Systems Able to Perform ROS?: Yes Is the patient limited [place] proficient: No Constitutional: Yes: Chills, Fever, Malaise HEENTM: Yes: Symptoms Reported, See HPI, Nose Congestion. No: Eye Pain, Blurred Vision, Tearing, Recent change in vision, Double Vision, Cataracts, Ear Pain, Ocular Prothesis, Ear Discharge, Nose Pain, Tinnitus, Nose Bleeding, Hearing Loss, Throat Pain, Throat Swelling, Mouth Pain, Dental Problems, Difficulty Swallowing, Mouth Swelling, Other Respiratory: Yes: Symptoms reported, See HPI, Cough. No: Orthopnea, Shortness of Breath, SOB with Exertion, SOB at Rest, Stridor, Wheezing, Productive cough, Hemoptysis, Other Cardiac (ROS): No: Symptoms Reported, See HPI, Chest Pain, Edema, Irregular Heart Rate, Lightheadedness, Palpitations, Syncope, Chest Tightness, Other ABD/GI: Yes: Symptoms Reported, See HPI, Nausea. No: Abd. Pain w/ defecation, Blood Streaked Bowels, Constipated, Diarrhea, Difficulty Swallowing, Rectal Bleeding, Vomiting, Abdominal cramping Musculoskeletal: No: Symptoms Reported Integumentary: No: Symptoms Reported, Rash Neurological: Yes: Symptoms reported, See HPI, Headache. No: Numbness, Paresthesia, Pre-Existing Deficit, Tingling, Unsteady Gait, Ataxia, Dizziness All Other Systems: Reviewed and Negative *Physical Exam - Vital Signs Last Vital Signs Temp Pulse Resp BP Pulse Ox 100.6 F H 104 H 18 98/59 L 100 05/14/19 16:15 05/14/19 16:15 05/14/19 16:15 05/14/19 16:15 05/14/19 16:15 - Physical Exam 05/14/19 16:41 GENERAL: Well developed, well nourished. Awake and alert. No acute distress. HEENT: Normocephalic, atraumatic. PERRLA, EOMI. No conjunctival pallor. Sclera are non-icteric. Moist mucous membranes. Oropharynx is clear. NECK: Supple. Full ROM. CARDIOVASCULAR: Regular rate and rhythm. No murmurs, rubs, or gallops. Distal pulses are 2+ and symmetric. PULMONARY: No evidence of respiratory distress. Lungs clear to auscultation bilaterally. No wheezing, rales or rhonchi. ABDOMINAL: Soft. Non-tender. Non-distended. No rebound or guarding. No organomegaly. Normoactive bowel sounds. MUSCULOSKELETAL Normal range of motion at all joints. SKIN: Warm and dry. Normal capillary refill. No rashes. No cyanosis. NEUROLOGICAL: Alert, awake, appropriate. Gait is normal without ataxia. Negative meningeal sign. Negative Brudzinski sign. negative Kernig sign. PSYCHIATRIC: Cooperative. Good eye contact. Appropriate mood General Appearance: Yes: Nourished, Appropriately Dressed, Mild Distress Medical Decision Making - Medical Decision Making 05/14/19 16:53 Patient with no significant past medical history present with complaint of 2- day history of headache, body aches, fever, nasal congestion and malaise. Patient reported headache is frontal headache. Denies vomiting, dizziness, palpitation, shortness of breath, blurry vision or change in vision. Patient has not taken anything for symptoms. Denies sick contacts or recent travel Exam significant for fever of 100.6 F. Patient with mild hypotension and mildly tachycardic. Lungs clear to auscultation bilateral and normal cardio exam. Normal neuro exam with negative Brudzinski and Kernig sign with no evidence of meningeal sign on exam. Patient moving neck without difficulty. Patient symptoms likely influenza. Rapid flu ordered to rule out influenza. Will give IV fluids 1 L lactated Ringer's to help with hypotension tachycardic. Tylenol 1 g IV ordered for headache and fever and Reglan 10 mg IV ordered for headaches. Reassess after lab results 05/14/19 17:32 Rapid flu positive for influenza B. Patient with much improvement in symptoms and headache after Tylenol and Reglan with fluids. Patient stable for discharge on Tamiflu twice daily for influenza, Medrol pack for cough and congestion Atrovent nasal spray for nasal congestion advised to continue Tylenol alternating with Motrin as needed for fever with PCP follow-up Discharge - Discharge Information Problems reviewed: Yes Clinical Impression/Diagnosis: Influenza, Acute viral syndrome Headache Qualifiers: Headache type: unspecified Headache chronicity pattern: acute headache Intractability: not intractable Qualified Code(s): R51 - Headache Condition: Stable Disposition: HOME - Admission No - Additional Discharge Information Prescriptions: Ipratropium [place] 2 spray NS BID PRN 5 Days #1 spray PRN Reason: nasal congestion Methylprednisolone [Medrol Dose Arvin] 4 mg PO ASDIR #21 tablet Ondansetron [Zofran *Odt*] 4 mg SL Q8H PRN #12 od.tablet PRN Reason: nausea Oseltamivir Phosphate [Tamiflu -] 75 mg PO BID #10 capsule - Follow up/Referral - Patient Discharge Instructions Patient Printed Discharge Instructions: DI for Influenza -- Adult Additional Instructions: Your flu test was positive for influenza B. Take prescribed medication as prescribed for flu and congestion. Continue with Tylenol alternating with Motrin as needed for fever and headache. Increase fluid intake. Follow-up with primary care - Post Discharge Activity
[2019-05-14] MEDS ORDERED: ACETAMINOPHEN INJECTION 100 ML IVPB ONE (16:44)
[2019-05-14 17:43] VITALS: BP 119/56; PULSE 88
[2019-05-14 17:44] VITALS: TEMP 100
== END 2019-05-14 17:46 | disposition home or self-care (01) ==
LOC: JERFT 16:09 → JER 16:09 → JERFT 17:46
DX: J10.1 Influenza due to other identified influenza virus with other respiratory manifestations (principal); B34.9 Viral infection, unspecified; Z88.0 Allergy status to penicillin
CPT/HCPCS: 87804; 99284-25; J0131

== ENCOUNTER 2022-01-31 16:56 | Emergency (ER) | payer OTHER ==
[2022-01-31 17:03] VITALS: BP 106/67; PULSE 88; RESP 18; TEMP 98; BMI 38.7
[2022-01-31] MEDS ORDERED: DIPHTH,PERTUSS(ACELL),TET 0.5 ML DISP.SYRIN IM ONE ×2 (18:16→18:19)
== END 2022-01-31 19:15 | disposition home or self-care (01) ==
LOC: JER 16:56 → JERFT 16:56
PROC: 3E0234Z Introduction of Serum, Toxoid and Vaccine into Muscle, Percutaneous Approach (ICD-10-PCS; principal; 2022-01-31)
PROC: 0HQGXZZ Repair Left Hand Skin, External Approach (ICD-10-PCS; 2022-01-31)
DX: S61.412A Laceration without foreign body of left hand, initial encounter (principal); W26.0XXA Contact with knife, initial encounter; Y93.G1 Activity, food preparation and clean up
CPT/HCPCS: 12002-25; 90471; 90715; 99284-25